=== PATIENT | male | born 1965 | race Caucasian/White ===

== ENCOUNTER 2017-10-29 09:30 | Emergency (ER) | payer MEDICAID ==
[~2017-10-29] VITALS: Ht 180.3 cm; Wt 104.3 kg
[2017-10-29 10:17] LABS: Basophils # (auto) 0.1 uL; Basophils % (auto) 1.1 % (0.0-2.0); Eosinophils # (auto) 0.2 uL; Eosinophils % (auto) 3.8 % (0.0-7.0); Hematocrit 41.8 % (41.0-53.0); Hemoglobin 14.2 g/dL (13.5-17.5); Lymphocytes # (auto) 1.4 uL; Lymphocytes % (auto) 23.7 % (10.0-50.0); Mean Corpuscular Hemoglobin 31.2 pg (28.0-32.0); Mean Corpuscular Hgb Conc. 33.9 g/dL (32.0-36.0); Mean Corpuscular Volume 91.8 fL (80.0-100.0); Monocytes # (auto) 0.6 uL; Monocytes % (auto) 10.5 % (0.0-12.0); Neutrophils # (auto) 3.6 uL; Neutrophils % (auto) 60.9 % (37.0-80.0); Platelet Count (auto) 203 10^3/uL (140-450); Red Blood Cells 4.55 10^6/uL (4.5-5.90); Red Cell Distribution Width 13.3 % (11.8-14.3); White Blood Cell 5.9 10^3/uL (4.4-10.8)
[2017-10-29 10:22] LABS: Urine Bacteria NONE SEEN /hpf (None Seen); Urine Blood Negative /uL (Negative); Urine Specific Gravity 1.003 (1.001-1.035); Urine WBC <1 /hpf (0 - 3)
[2017-10-29 10:31] LABS: Albumin 3.9 g/dL (3.4-5.0); BUN/Creatinine Ratio 17.6; Bilirubin, Total 0.4 mg/dL (0.2-1.0); Calcium 8.2 mg/dL (8.5-10.1); INR 0.87 (0.9-1.15); Partial Thromboplastin Time 27.6 sec (22.64-33.71); Potassium 3.9 mmol/L (3.5-5.1); Prothrombin Time 9.5 sec (9.37-12.3); Total Protein 7.4 g/dL (6.4-8.2)
[2017-10-29 11:48] VITALS: BP 118/41
== END 2017-10-29 14:09 | disposition home or self-care (01) ==
LOC: ER 09:30
DX: I80.3 Phlebitis and thrombophlebitis of lower extremities, unspecified (principal); F12.10 Cannabis abuse, uncomplicated; Z86.718 Personal history of other venous thrombosis and embolism
CPT/HCPCS: 36415; 71046; 80053; 81001; 85025; 85610; 85730; 93971

== ENCOUNTER 2023-03-04 08:20 | Emergency (ER) | payer MEDICAID ==
[~2023-03-04] VITALS: Ht 180.3 cm; Wt 95.0 kg
[2023-03-04 08:31] VITALS: BP 156/93; RESP 18; O2SAT 97
[2023-03-04 09:07] LABS: Basophils # (auto) 0.1 10 ^3/uL (0-0.2); Basophils % (auto) 2.1 % (0.0-2.0); Eosinophils # (auto) 0.4 10 ^3/uL (0-0.8); Eosinophils % (auto) 6.7 % (0.0-7.0); Hematocrit 44.7 % (41.0-53.0); Hemoglobin 15.2 g/dL (13.5-17.5); Lymphocytes # (auto) 1.4 10 ^3/uL (0.4-5.4); Lymphocytes % (auto) 25.3 % (10.0-50.0); Mean Corpuscular Hemoglobin 32.3 pg (28.0-32.0); Mean Corpuscular Volume 94.8 fL (80.0-100.0); Monocytes # (auto) 0.5 10 ^3/uL (0-1.3); Monocytes % (auto) 9.6 % (0.0-12.0); Neutrophils % (auto) 56.3 % (37.0-80.0); Nucleated Red Blood Cells % 0.1 %; Red Blood Cells 4.72 10^6/uL (4.5-5.90); Red Cell Distribution Width 13.6 % (11.8-14.3); White Blood Cell 5.4 10^3/uL (4.4-10.8)
[2023-03-04 09:24] LABS: Albumin 3.8 g/dL (3.4-5.0); Calcium 8.9 mg/dL (8.5-10.1); Potassium 4.5 mmol/L (3.5-5.1)
[2023-03-04 09:28] LABS: Bilirubin, Total 0.4 mg/dL (0.2-1.0); Total Protein 8.1 g/dL (6.4-8.2)
[2023-03-04 09:33] LABS: INR 0.92 (0.9-1.15); Partial Thromboplastin Time 28.5 SEC (24.5-34.5)
[2023-03-04 09:49] VITALS: PULSE 60
[2023-03-04] MEDS ORDERED: AZIT1POW PO (09:50)
== END 2023-03-04 09:50 | disposition home or self-care (01) ==
LOC: ER 08:20
DX: J20.9 Acute bronchitis, unspecified (principal); F15.90 Other stimulant use, unspecified, uncomplicated; Z86.718 Personal history of other venous thrombosis and embolism; Z98.890 Other specified postprocedural states
CPT/HCPCS: 36415; 71045; 80053; 83880; 84484; 85025; 85379; 85610; 85730; 93005

== ENCOUNTER 2024-07-24 09:42 | Emergency (ER) | payer MEDICAID ==
[~2024-07-24] VITALS: Ht 180.3 cm; Wt 89.9 kg
[~2024-07-24 09:42] MED LIST: AZIT1POW PO
--- NOTE | 2024-07-24 10:36 | DVH ---
CLINICAL INDICATION: R/o fracture vs dislocation TECHNIQUE: XY R SHOULDER 2+ VIEW XRAY Comparison: None FINDINGS/IMPRESSION: : There is no evidence of acute fracture or dislocation. Soft tissues are unremarkable. Degenerative changes of the AC joint.
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
[2024-07-24] MEDS: CYCLOBENZAPRINE HCL 10 MG TAB PO ONE (11:11)
[2024-07-24] MEDS: KETOROLAC TROMETH 30 MG/ML 1ML VIAL IM ONE (11:12)
[2024-07-24 11:15] VITALS: BP 142/87; PULSE 74; RESP 14; TEMP 98.4; O2SAT 97
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
== END 2024-07-24 11:47 | disposition home or self-care (01) ==
LOC: ER 09:42
DX: M54.2 Cervicalgia (principal); M25.511 Pain in right shoulder; R53.1 Weakness; V49.40XA Driver injured in collision with unspecified motor vehicles in traffic accident, initial encounter; Y93.89 Activity, other specified; Y92.410 Unspecified street and highway as the place of occurrence of the external cause; Y99.8 Other external cause status
CPT/HCPCS: 70450; 72125; 73030; 96372; 99285; J1885